=== PATIENT | male | born 1985 | race Two or more races ===

== ENCOUNTER 2018-05-24 16:13 | Emergency (ER) | payer SELFPAY ==
[~2018-05-24] VITALS: Ht 188 cm; Wt 68.0 kg
[2018-05-24] MEDS ORDERED: HYDROCODONE/ACETAMINOPHEN 5/325MG TABLET PO ONE (18:00)
== END 2018-05-24 20:30 | disposition home or self-care (01) ==
LOC: ER 16:13
DX: S40.022A Contusion of left upper arm, initial encounter (principal); S80.12XA Contusion of left lower leg, initial encounter; F12.10 Cannabis abuse, uncomplicated; Y08.89XA Assault by other specified means, initial encounter; V03.00XA Pedestrian on foot injured in collision with car, pick-up truck or van in nontraffic accident, initial encounter; Y93.89 Activity, other specified; Y92.89 Other specified places as the place of occurrence of the external cause
CPT/HCPCS: 29125; 73030; 73090; 73110; 73130; 73502; 99283; Z7610; A4565

== ENCOUNTER 2019-02-02 10:42 | Emergency (ER) | payer MEDICAID ==
[~2019-02-02] VITALS: Ht 188 cm; Wt 68.0 kg
[2019-02-02] MEDS ORDERED: IBUPROFEN 600MG TABLET PO ONE (11:30)
[2019-02-02 14:19] VITALS: BP 110/72
== END 2019-02-02 14:20 | disposition home or self-care (01) ==
LOC: ER 10:42
DX: M25.562 Pain in left knee (principal); F17.200 Nicotine dependence, unspecified, uncomplicated; F12.10 Cannabis abuse, uncomplicated
CPT/HCPCS: 73562; 99283

== ENCOUNTER 2021-12-29 13:10 | Inpatient (IN) | payer MEDICAID ==
[~2021-12-29] VITALS: Ht 188 cm; Wt 68.0 kg
[2021-12-29 12:50] VITALS: BP 138/68
[2021-12-29] MEDS ORDERED: ONDANSETRON HCL 4MG/2ML INJ IV PRN (13:45)
[2021-12-29 14:30] VITALS: BP 108/81
[2021-12-29] MEDS ORDERED: IPRATROPIUM/ALBUTEROL 0.5-3(2.5)MG/3ML NEB HHN PRN (16:30)
[2021-12-29 20:00] VITALS: BP 135/77
[2021-12-29 21:47] LABS: EOSINOPHILS % 4.7 % (0.0-5.0); HEMATOCRIT. 34.7 % (42.0-52.0); HEMOGLOBIN. 11.1 g/dL (14.0-18.0); LYMPHOCYTES % 35.8 % (20.0-50.0); MEAN CORPUSCULAR HEMOGLOBIN 27.4 pg (28.0-32.0); MEAN CORPUSCULAR VOLUME 85.4 fL (80.0-94.0); MEAN PLATELET VOLUME 8.1 fl (7.4-10.4); MONOCYTES % 10.5 % (2.0-8.0); PLATELET 498 x1000/uL (130-400); RED BLOOD CELL COUNT 4.06 mill/uL (4.7-6.1); RED CELL DISTRIBUTION WIDTH 15.2 % (11.6-14.6)
[2021-12-29 22:12] LABS: CHLORIDE 104 mEq/L (98-107)
[2021-12-30 08:00] VITALS: BP 142/93
[2021-12-30 20:02] VITALS: BP 138/89
[2021-12-30] MEDS ORDERED: METOPROLOL SUCCINATE 50MG ER TABLET PO SCH (21:00)
[2021-12-30] MEDS: METOPROLOL TARTRATE 25MG TABLET PO SCH (21:00)
[2021-12-31 07:00] LABS: BASOPHILS % 0.6 % (0.0-2.0); EOSINOPHILS % 2.2 % (0.0-5.0); HEMATOCRIT. 37.3 % (42.0-52.0); LYMPHOCYTES % 24.4 % (20.0-50.0); MEAN CORPUSCULAR HEMOGLOBIN 27.3 pg (28.0-32.0); MEAN CORPUSCULAR VOLUME 84.8 fL (80.0-94.0); MEAN PLATELET VOLUME 7.9 fl (7.4-10.4); MONOCYTES % 7.5 % (2.0-8.0); NEUTROPHILS % 65.3 % (40.0-76.0); PLATELET 505 x1000/uL (130-400); RED CELL DISTRIBUTION WIDTH 15.1 % (11.6-14.6)
[2021-12-31 07:18] LABS: CHLORIDE 103 mEq/L (98-107)
[2021-12-31 07:42] LABS: FOLIC ACID (FOLATE) SERUM 12.6 ng/mL (>5.38)
[2021-12-31 07:44] LABS: TOTAL IRON BINDING CAPACITY 241 ug/dL (250-450)
[2021-12-31 08:00] VITALS: BP 124/60
[2021-12-31 10:27] LABS: ETHANOL BLOOD < 10 mg/dL; T4 FREE 1.08 ng/dL (0.76-1.46)
[2021-12-31] MEDS: METOPROLOL TARTRATE 25MG TABLET PO SCH ×2 (12:04→20:52)
[2021-12-31 20:21] VITALS: BP 96/71
[2022-01-01 08:00] VITALS: BP 113/81
[2022-01-01] MEDS: METOPROLOL TARTRATE 25MG TABLET PO SCH ×2 (09:24→20:32)
[2022-01-01] MEDS: ENOXAPARIN 30MG/0.3ML SYR SUBCUT SCH ×2 (09:24→20:32)
[2022-01-01 20:07] VITALS: BP 131/51
[2022-01-01] MEDS: QUETIAPINE FUMARATE 50MG TABLET PO SCH (20:32)
[2022-01-01] MEDS: TRAZODONE HCL 50MG TABLET PO PRN (20:32)
[2022-01-02 08:00] VITALS: BP 111/77
[2022-01-02] MEDS: METOPROLOL TARTRATE 25MG TABLET PO SCH ×2 (09:14→21:00)
[2022-01-02] MEDS: ENOXAPARIN 30MG/0.3ML SYR SUBCUT SCH ×2 (09:15→21:00)
[2022-01-02 20:00] VITALS: BP 104/66
[2022-01-02] MEDS: QUETIAPINE FUMARATE 50MG TABLET PO SCH (22:12)
[2022-01-03 07:09] LABS: BASOPHILS % 0.5 % (0.0-2.0); HEMATOCRIT. 35.3 % (42.0-52.0); HEMOGLOBIN. 11.6 g/dL (14.0-18.0); LYMPHOCYTES % 25.7 % (20.0-50.0); MEAN CORPUSCULAR HEMOGLOBIN 27.8 pg (28.0-32.0); MEAN CORPUSCULAR VOLUME 84.4 fL (80.0-94.0); MEAN PLATELET VOLUME 7.5 fl (7.4-10.4); MONOCYTES % 7.8 % (2.0-8.0); PLATELET 379 x1000/uL (130-400); RED BLOOD CELL COUNT 4.18 mill/uL (4.7-6.1); RED CELL DISTRIBUTION WIDTH 15.1 % (11.6-14.6)
[2022-01-03 07:21] LABS: CHLORIDE 106 mEq/L (98-107)
[2022-01-03 08:00] VITALS: BP 107/71
[2022-01-03] MEDS: METOPROLOL TARTRATE 25MG TABLET PO SCH ×2 (09:04→21:29)
[2022-01-03] MEDS: ENOXAPARIN 30MG/0.3ML SYR SUBCUT SCH ×2 (09:04→21:30)
[2022-01-03 20:00] VITALS: BP 117/75
[2022-01-03] MEDS: TRAZODONE HCL 50MG TABLET PO PRN (21:29)
[2022-01-03] MEDS: QUETIAPINE FUMARATE 50MG TABLET PO SCH (21:29)
[2022-01-04] MEDS: ACETAMINOPHEN 325MG TABLET PO PRN ×2 (01:22→20:45)
[2022-01-04 08:00] VITALS: BP 100/62
[2022-01-04] MEDS: METOPROLOL TARTRATE 25MG TABLET PO SCH ×2 (08:35→20:55)
[2022-01-04] MEDS: ENOXAPARIN 40MG/0.4ML SYR SUBCUT SCH (08:37)
[2022-01-04 19:56] VITALS: BP 130/42
[2022-01-04] MEDS: TRAZODONE HCL 50MG TABLET PO PRN (20:45)
[2022-01-04] MEDS: QUETIAPINE FUMARATE 50MG TABLET PO SCH (20:45)
[2022-01-05 08:00] VITALS: BP 147/72
[2022-01-05] MEDS: METOPROLOL TARTRATE 25MG TABLET PO SCH ×2 (09:00→20:41)
[2022-01-05] MEDS: ENOXAPARIN 40MG/0.4ML SYR SUBCUT SCH ×2 (09:00→21:38)
[2022-01-05 20:04] VITALS: BP 108/64
[2022-01-05] MEDS: TRAZODONE HCL 50MG TABLET PO PRN (20:41)
[2022-01-05] MEDS: QUETIAPINE FUMARATE 50MG TABLET PO SCH (20:43)
[2022-01-06] MEDS: QUETIAPINE FUMARATE 50MG TABLET PO SCH ×2 (00:38→20:15)
[2022-01-06 08:00] VITALS: BP 108/69
[2022-01-06] MEDS: METOPROLOL TARTRATE 25MG TABLET PO SCH ×2 (08:56→09:12)
[2022-01-06 20:00] VITALS: BP 105/65
[2022-01-07 08:00] VITALS: BP 115/68
[2022-01-07] MEDS: METOPROLOL TARTRATE 25MG TABLET PO SCH ×2 (08:58→21:00)
[2022-01-07] MEDS: ENOXAPARIN 40MG/0.4ML SYR SUBCUT SCH (08:58)
[2022-01-07 14:09] LABS: 25-HYDROXY VITAMIN D3 28 ng/mL (.)
[2022-01-07 20:00] VITALS: BP 108/69
[2022-01-07] MEDS: QUETIAPINE FUMARATE 50MG TABLET PO SCH (21:27)
[2022-01-08 08:00] VITALS: BP 113/67
[2022-01-08] MEDS: METOPROLOL TARTRATE 25MG TABLET PO SCH ×2 (08:14→20:52)
[2022-01-08] MEDS: ENOXAPARIN 40MG/0.4ML SYR SUBCUT SCH (08:14)
[2022-01-08] MEDS ORDERED: ERGOCALCIFEROL 50000UNITS CAPSULE PO SCH (15:30)
[2022-01-08 17:18] LABS: CHLORIDE 107 mEq/L (98-107)
[2022-01-08 17:29] LABS: BASOPHILS % 0.8 % (0.0-2.0); EOSINOPHILS % 1.7 % (0.0-5.0); HEMATOCRIT. 36.8 % (42.0-52.0); HEMOGLOBIN. 11.9 g/dL (14.0-18.0); LYMPHOCYTES % 28.8 % (20.0-50.0); MEAN CORPUSCULAR HEMOGLOBIN 27.4 pg (28.0-32.0); MEAN CORPUSCULAR VOLUME 84.9 fL (80.0-94.0); MEAN PLATELET VOLUME 7.9 fl (7.4-10.4); MONOCYTES % 7.7 % (2.0-8.0); PLATELET 275 x1000/uL (130-400); RED BLOOD CELL COUNT 4.33 mill/uL (4.7-6.1); RED CELL DISTRIBUTION WIDTH 15.3 % (11.6-14.6)
[2022-01-08 20:00] VITALS: BP 110/70
[2022-01-08] MEDS: QUETIAPINE FUMARATE 50MG TABLET PO SCH (20:53)
[2022-01-09] MEDS: ENOXAPARIN 40MG/0.4ML SYR SUBCUT SCH (08:41)
[2022-01-09] MEDS: METOPROLOL TARTRATE 25MG TABLET PO SCH ×2 (08:41→20:01)
[2022-01-09 15:32] LABS: BASOPHILS % 0.3 % (0.0-2.0); EOSINOPHILS % 1.5 % (0.0-5.0); HEMATOCRIT. 38.9 % (42.0-52.0); HEMOGLOBIN. 12.5 g/dL (14.0-18.0); LYMPHOCYTES % 17.3 % (20.0-50.0); MEAN CORPUSCULAR HEMOGLOBIN 27.4 pg (28.0-32.0); MEAN CORPUSCULAR VOLUME 85.2 fL (80.0-94.0); MEAN PLATELET VOLUME 7.6 fl (7.4-10.4); NEUTROPHILS % 74.9 % (40.0-76.0); PLATELET 296 x1000/uL (130-400); RED BLOOD CELL COUNT 4.57 mill/uL (4.7-6.1); RED CELL DISTRIBUTION WIDTH 15.2 % (11.6-14.6)
[2022-01-09 15:45] LABS: CHLORIDE 106 mEq/L (98-107)
[2022-01-09 20:00] VITALS: BP 110/69
[2022-01-09] MEDS: QUETIAPINE FUMARATE 50MG TABLET PO SCH (20:00)
[2022-01-10 08:00] VITALS: BP 98/71
[2022-01-10] MEDS: METOPROLOL TARTRATE 25MG TABLET PO SCH ×2 (09:00→21:00)
[2022-01-10] MEDS: ENOXAPARIN 40MG/0.4ML SYR SUBCUT SCH (10:15)
[2022-01-10 14:31] LABS: CLARITY URINE CLEAR (CLEAR); COLOR URINE YELLOW (YELLOW); KETONES URINE NEGATIVE (NEGATIVE); LEUKOCYTE ESTERASE URINE NEGATIVE (NEGATIVE); NITRITE URINE POSITIVE (NEGATIVE); OCCULT BLOOD URINE NEGATIVE (NEGATIVE); PH URINE 6.5 (4.5-8.0); PROTEIN URINE NEGATIVE (NEGATIVE); SPECIFIC GRAVITY URINE 1.017 (1.005-1.030); UROBILINOGEN URINE 0.2 E.U./dL (0.2-1.0)
[2022-01-10 20:00] VITALS: BP 109/70
[2022-01-10] MEDS: QUETIAPINE FUMARATE 50MG TABLET PO SCH (20:14)
[2022-01-11 07:53] VITALS: BP 110/76
[2022-01-11] MEDS: METOPROLOL TARTRATE 25MG TABLET PO SCH ×2 (08:36→21:01)
[2022-01-11] MEDS: NITROFURANTOIN 100MG M/M CAPSULE PO SCH ×2 (08:36→21:01)
[2022-01-11] MEDS: ENOXAPARIN 40MG/0.4ML SYR SUBCUT SCH (08:37)
[2022-01-11 13:11] LABS: BASOPHILS % 0.7 % (0.0-2.0); EOSINOPHILS % 2.4 % (0.0-5.0); HEMATOCRIT. 40.6 % (42.0-52.0); HEMOGLOBIN. 12.8 g/dL (14.0-18.0); LYMPHOCYTES % 31.2 % (20.0-50.0); MEAN CORPUSCULAR HEMOGLOBIN 26.9 pg (28.0-32.0); MEAN CORPUSCULAR VOLUME 85.5 fL (80.0-94.0); MEAN PLATELET VOLUME 7.9 fl (7.4-10.4); MONOCYTES % 7.5 % (2.0-8.0); NEUTROPHILS % 58.2 % (40.0-76.0); PLATELET 287 x1000/uL (130-400); RED BLOOD CELL COUNT 4.75 mill/uL (4.7-6.1)
[2022-01-11 13:20] LABS: CHLORIDE 104 mEq/L (98-107)
[2022-01-11 20:00] VITALS: BP 120/71
[2022-01-11] MEDS: QUETIAPINE FUMARATE 50MG TABLET PO SCH (21:00)
[2022-01-12 06:17] LABS: BASOPHILS % 0.6 % (0.0-2.0); EOSINOPHILS % 3.2 % (0.0-5.0); HEMATOCRIT. 37.5 % (42.0-52.0); HEMOGLOBIN. 11.9 g/dL (14.0-18.0); LYMPHOCYTES % 26.5 % (20.0-50.0); MEAN CORPUSCULAR HEMOGLOBIN 27.3 pg (28.0-32.0); MEAN PLATELET VOLUME 7.6 fl (7.4-10.4); MONOCYTES % 10.5 % (2.0-8.0); NEUTROPHILS % 59.2 % (40.0-76.0); PLATELET 301 x1000/uL (130-400); RED BLOOD CELL COUNT 4.36 mill/uL (4.7-6.1); RED CELL DISTRIBUTION WIDTH 15.7 % (11.6-14.6)
[2022-01-12 06:52] LABS: CHLORIDE 107 mEq/L (98-107)
[2022-01-12 08:00] VITALS: BP 111/81
[2022-01-12] MEDS: NITROFURANTOIN 100MG M/M CAPSULE PO SCH ×2 (09:22→21:32)
[2022-01-12] MEDS: METOPROLOL TARTRATE 25MG TABLET PO SCH ×2 (09:23→21:00)
[2022-01-12] MEDS: ENOXAPARIN 40MG/0.4ML SYR SUBCUT SCH (09:24)
[2022-01-12 20:00] VITALS: BP 108/62
[2022-01-12] MEDS: QUETIAPINE FUMARATE 50MG TABLET PO SCH (21:32)
[2022-01-13 08:00] VITALS: BP 116/62
[2022-01-13] MEDS: NITROFURANTOIN 100MG M/M CAPSULE PO SCH ×2 (08:59→21:19)
[2022-01-13] MEDS: ENOXAPARIN 40MG/0.4ML SYR SUBCUT SCH (09:00)
[2022-01-13] MEDS: METOPROLOL TARTRATE 25MG TABLET PO SCH ×2 (09:00→21:23)
[2022-01-13 20:00] VITALS: BP 120/71
[2022-01-13] MEDS: QUETIAPINE FUMARATE 50MG TABLET PO SCH (21:19)
[2022-01-14 08:00] VITALS: BP 107/73
[2022-01-14] MEDS: ENOXAPARIN 40MG/0.4ML SYR SUBCUT SCH (09:00)
[2022-01-14] MEDS: NITROFURANTOIN 100MG M/M CAPSULE PO SCH (09:14)
[2022-01-14] MEDS: METOPROLOL TARTRATE 25MG TABLET PO SCH (09:14)
[2022-01-14] MEDS ORDERED: NITR-87 MT (09:44)
[2022-01-14] MEDS ORDERED: ABILIFY MAINTENA 300 MG XX SCH ×2 (11:00→12:30)
[2022-01-14 11:49] VITALS: BP 107/73
== END 2022-01-14 15:02 | disposition home or self-care (01) | DRG 930 ==
PROVIDERS: ADMIT Physical Medicine & Rehabilitation Spinal Cord Injury Medicine; ATTEND Family Medicine Adult Medicine
DX: S06.0X9A Concussion with loss of consciousness of unspecified duration, initial encounter (principal); S72.002A Fracture of unspecified part of neck of left femur, initial encounter for closed fracture; S22.41XA Multiple fractures of ribs, right side, initial encounter for closed fracture; J96.00 Acute respiratory failure, unspecified whether with hypoxia or hypercapnia; G92.8 Other toxic encephalopathy; E43 Unspecified severe protein-calorie malnutrition; S27.322A Contusion of lung, bilateral, initial encounter; S02.31XA Fracture of orbital floor, right side, initial encounter for closed fracture; S02.40EA Zygomatic fracture, right side, initial encounter for closed fracture; S42.401A Unspecified fracture of lower end of right humerus, initial encounter for closed fracture; D64.9 Anemia, unspecified; S02.841A Fracture of lateral orbital wall, right side, initial encounter for closed fracture; R13.10 Dysphagia, unspecified; S42.121A Displaced fracture of acromial process, right shoulder, initial encounter for closed fracture; Z93.0 Tracheostomy status; Z82.49 Family history of ischemic heart disease and other diseases of the circulatory system; V29.9XXA Motorcycle rider (driver) (passenger) injured in unspecified traffic accident, initial encounter; Z43.1 Encounter for attention to gastrostomy; N39.0 Urinary tract infection, site not specified; E55.9 Vitamin D deficiency, unspecified; R53.81 Other malaise; R26.9 Unspecified abnormalities of gait and mobility
CPT/HCPCS: 36415; 71046; 73030; 73060; 73100; 73502; 80048; 80053; 80320; 81003; 82140; 82306; 82607; 82728; 82746; 83036; 83540; 83550; 84145; 84439; 84443; 84481; 85025; 87077; 87186; 92523; 92610; 93970; 97110; 97112; 97116; 97150; 97162; 97166; 97530; 97535; A4565; J1650; G0480